=== PATIENT | male | born 1990 | race Caucasian/White ===

== ENCOUNTER 2017-11-29 01:24 | Emergency (ER) | payer MEDICAID ==
[2017-11-29 01:25] VITALS: BMI 26.6
[2017-11-29 01:58] VITALS: TEMP 97.7
[2017-11-29] MEDS ORDERED: Sodium Chloride 0.9% 1,000 ML IV SCH (02:15)
--- NOTE | 2017-11-29 03:04 | ED PDOC ---
Arrival/HPI - General Chief Complaint: GI Problem Time Seen by Provider: 11/29/17 02:15 Historian: Patient - History of Present Illness Narrative History of Present Illness (Text): 11/29/17 02:56 27 year old male, with no significant past medical history, presents to the emergency department with right lower abdominal pain and constipation, for 24 hours. Patient states he has chronic constipation, and today had a hard time wi th morning bowel movement. Patient states he feels he was unable to fully empty his bowel. Patient states he has felt pain in RLQ shortly after. Patient denies any fevers, chills, headache, dizziness, or any other complaint. Time/Duration: 24 hours Symptom Onset: Gradual Symptom Course: Unchanged Activities at Onset: Light Past Medical History - Provider Review Nursing Documentation Reviewed: Yes - Infectious Disease Hx of Infectious Diseases: None - Tetanus Immunization Tetanus Immunization: Up to Date - Cardiac Hx Cardiac Disorders: No - Pulmonary Hx Respiratory Disorders: No - Neurological Hx Neurological Disorder: No - HEENT Hx HEENT Disorder: Yes Other/Comment: EAR PAIN - Renal Hx Renal Disorder: No - Endocrine/Metabolic Hx Endocrine Disorders: No - Hematological/Oncological Hx Blood Disorders: No - Integumentary Hx Sullivan: Yes - Musculoskeletal/Rheumatological Hx Musculoskeletal Disorders: No - Gastrointestinal Hx Gastrointestinal Disorders: Yes Hx Constipation: Yes - Genitourinary/Gynecological Hx Genitourinary Disorders: No - Psychiatric Hx Anxiety: Yes Hx Depression: Yes Hx Substance Use: No - Anesthesia Hx Anesthesia: No Hx Anesthesia Reactions: No Hx Malignant Hyperthermia: No - Suicidal Assessment Feels Threatened In Home Enviroment: No Family/Social History - Physician Review Nursing Documentation Reviewed: Yes Family/Social History: No Known Family HX Smoking Status: Light Smoker < 10 Cigarettes Daily Hx Alcohol Use: No Hx Substance Use: No Allergies/Home Meds Allergies/Adverse Reactions: Allergies No Known Allergies Allergy (Verified 05/06/15 10:48) Home Medications: Home Meds Medication Instructions Recorded Confirmed Sertraline [Zoloft] 100 mg PO DAILY 05/06/15 05/06/15 Review of Systems - Physician Review All systems were reviewed & negative as marked: Yes - Review of Systems Constitutional: absent: Fevers, Night Sweats Gastrointestinal: Abdominal Pain, Constipation Neurological: absent: Headache, Dizziness Physical Exam - Physical Exam Narrative Physical Exam (Text): 11/29/17 03:07 Gen: VS reviewed, alert, well developed, well nourished, nontoxic, mild distress. ENT: normal pharynx. Eye: EOMI, PERRL. Neck: no JVD, supple, no adenopathy. CV: regular rate, regular rhythm, no rubs, no murmur, no gallops, S1, S2, pulses equal and strong. Pulm: no distress, clear to auscultation, no wheeze, no rhonchi, breath sounds equal, no rales. Abd: mild to moderate RLQ tenderness, some guarding, no rebound, no rigidity. Ext: no edema. Skin: good color, no rash, no cyanosis. Psych: responds appropriately to questions, normal affect. Neuro: oriented x 3, CN2-12 intact grossly, motor intact, sensation intact. Vital Signs Reviewed: Yes Vital Signs Temp Pulse Resp BP Pulse Ox 11/29/17 01:55 97.7 F 110 H 20 130/78 97 Temperature: Afebrile Blood Pressure: Normal Pulse: Tachycardic Respiratory Rate: Normal Appearance: Positive for: Well-Appearing, Non-Toxic, Comfortable Pain Distress: None Mental Status: Positive for: Alert and Oriented X 3 Medical Decision Making ED Course and Treatment: 11/29/17 03:08 Impression: 27 year old male presents with RLQ pain and constipation Plan: -- CT ABD & Pelvis -- Toradol -- Urinalysis -- Reassess and disposition Prior Visits: Notes and results from previous visits were reviewed. Progress Notes: 11/29/17 05:19 patient initially reported he had constipation but there is no CT evidence of this. patient states that he had a lot of rectal pain but he is refusing rectal exam. patient denies any bloody stools. patient states he took magnesium prior to coming to the ED to "flush out his system". at this point patient will be discharged home and encouraged to follow up with his doctors. 11/29/17 05:23 - RAD Interpretation Narrative RAD Interpretations (Text): EXAM: CT Abdomen and Pelvis with IV contrast CLINICAL HISTORY: RLQ pain TECHNIQUE: Axial computed tomography images of the abdomen and pelvis with intravenous contrast. 573.27 mGy-cm CONTRAST: With intravenous contrast. With; OMNI 350 100 ml COMPARISON: None provided. FINDINGS: LUNG BASES: The lung bases appear clear. No pleural effusions are seen. LIVER: Unremarkable. GALLBLADDER AND BILE DUCTS: The gallbladder appears within normal limits. No radioopaque gallstones are seen. No biliary ductal dilatation is evident. PANCREAS: Unremarkable. SPLEEN: Unremarkable. ADRENAL GLANDS: Unremarkable. KIDNEYS, URETERS, AND BLADDER: The kidneys appear within normal limits. There is no hydronephrosis or hydroureter. No urinary calculi are seen. STOMACH AND BOWEL: Thick walled fluid filled small bowel compatible with enteritis. All segments are involved. Infectious and inflammatory etiologies are considered. Fluid-filled colon especially ascending colon, nonspecific, although may represent mild colitis. APPENDIX: No evidence of acute appendicitis on CT examination. PERITONEUM: No free fluid. No free air. LYMPH NODES: No lymphadenopathy is evident. REPRODUCTIVE: Unremarkable as visualized. VASCULATURE: No evidence of abdominal aortic aneurysm. BONES: No aggressive appearing osseous lesion. No acute osseous pathology evident. IMPRESSION: Normal appendix. Fluid-filled colon especially ascending colon, nonspecific, although may represent mild colitis. Thick walled fluid filled small bowel compatible with enteritis. All segments are involved. Infectious and inflammatory etiologies are considered. Electronically signed on Nov 29, 2017 4:58:41 AM EDT by: Chidi Ng M.D., KATEY Certified By ABR & CBC[employer] Fellowship Trained MRI and CT Specialist Radiology Orders: 11/29/17 02:16 ABDOMEN & PELVIS [ABD & PELVIS IV CONTRAST ONLY] [CT] Stat - Medication Orders Current Medication Orders: Sodium Chloride (Sodium Chloride 0.9%) 1,000 mls @ 150 mls/hr IV .[id number] [facility] Last Admin: 11/29/17 02:51 Dose: 150 mls/hr eMAR Start Stop Document 11/29/17 02:51 AD (Rec: 11/29/17 02:52 AD [id number]) Intravenous Solution Start Date 11/29/17 Start Time 02:52 Discontinued Medications Ketorolac Tromethamine (Toradol) 30 mg IVP STAT STA Stop: 11/29/17 02:16 Last Admin: 11/29/17 02:52 Dose: 30 mg MAR Pain Assessment Document 11/29/17 02:52 AD (Rec: 11/29/17 02:52 AD [id number]) Pain Reassessment Is this a pain reassessment? No Description Intensity of Pain at present 10 Pain Behavior Facial Grimacing IVP Administration Document 11/29/17 02:52 AD (Rec: 11/29/17 02:52 AD [id number]) Charges for Administration # of IVP Administrations 1 - Scribe Statement The provider has reviewed the documentation as recorded by the Marisolibaluren Mcghee Provider Scribe Attestation: All medical record entries made by the Scribe were at my direction and personally dictated by me. I have reviewed the chart and agree that the record accurately reflects my personal performance of the history, physical exam, medical decision making, and the department course for this patient. I have also personally directed, reviewed, and agree with the discharge instructions and disposition. Disposition/Present on Arrival - Present on Arrival Any Indicators Present on Arrival: No History of DVT/PE: No History of Uncontrolled Diabetes: No Urinary Catheter: No History of Decub. Ulcer: No History Surgical Site Infection Following: None - Disposition Have Diagnosis and Disposition been Completed?: Yes Diagnosis: Abdominal pain Disposition: HOME/ ROUTINE Disposition Time: 05:24 Patient Plan: Discharge Patient Problems: Current Active Problems Problem Status Onset Abdominal pain Acute Condition: STABLE Discharge Instructions (ExitCare): Acute Abdomen (Belly Pain) Additional Instructions: Return for any new or worsening symptoms. ROBIN HULL, thank you for letting us take care of you today. Your provider was Dr. Akira Mueller and you were treated for abdominal pain. The emergency medical care you received today was directed at your acute symptoms. If you were prescribed any medication, please fill it and take as directed. It may take several days for your symptoms to resolve. Return to the Emergency Department if your symptoms worsen, do not improve, or if you have any other problems. Please contact your doctor or call one of the physicians/clinics you have been referred to that are listed on the Patient Visit Information form that is included in your discharge packet. Bring any paperwork you were given at discharge with you along with any medications you are taking to your follow up visit. Our treatment cannot replace ongoing medical care by a primary care provider outside of the emergency department. Thank you for allowing the [facility] team to be part of your care today. If you had an X-Ray or CT scan: A Radiologist will review the ED reading if any change in treatment is needed we will contact you. If you had a blood, urine, or wound culture: It will take several days for the results, if any change in treatment is needed we will contact you. If you had an STI test: It will take 48 hours for the results. Please call after 1 week if you have not heard back. Prescriptions: Dicyclomine [Dicyclomine HCl] 10 mg PO TID PRN #15 cap PRN Reason: abdominal cramping Referrals: [facility] [Outside] - Follow up with primary Anushka Acosta MD [Medical Doctor] - Follow up with primary Forms: [employer] (Greenlandic)
[2017-11-29 03:09] LABS: BASO # 0.01 K/mm3 (0.0-2.0); BASO % 0.1 % (0.0-3.0); EOS # 0.1 (0.0-0.7); EOS % 1.3 % (1.5-5.0); GRAN # 4.51 (1.4-6.5); LYMPH # 1.8 (1.2-3.4); LYMPH % 26.7 % (22.0-35.0); MEAN CORPUSCULAR HEMOGLOBIN 30.3 pg (25.0-35.0); MEAN CORPUSCULAR HGB CONC 36.1 g/dl (31.0-37.0); MONO # 0.3 (0.1-0.6); MONO % 4.9 % (1.0-6.0); RBC 4.95 10^6/uL (3.5-6.1); RED CELL DISTRIBUTION WIDTH 12.7 % (11.5-14.5); WHITE BLOOD COUNT 6.7 10^3/ul (4.5-11.0)
[2017-11-29 03:28] LABS: ALB/GLOB RATIO 1.4 (1.1-1.8); ALBUMIN 4.7 g/dL (3.0-4.8); ALT/SGPT 79 U/L (7-56); AST/SGOT 42 U/L (17-59); BLOOD UREA NITROGEN 20 mg/dL (7-21); CALCIUM 9.6 mg/dL (8.4-10.5); GFR NON-AFRICAN AMERICAN > 60; LIPASE 77 U/L (23-300)
[2017-11-29] MEDS ORDERED: Iohexol 350 MG/100 ML VIAL ONE (03:33)
[2017-11-29 04:27] LABS: URINE BILIRUBIN NEGATIVE (NEGATIVE); URINE BLOOD NEGATIVE (NEGATIVE); URINE GLUCOSE (UA) NEGATIVE (NEGATIVE); URINE LEUKOCYTE ESTERASE NEGATIVE Leu/uL (NEGATIVE); URINE PROTEIN TRACE mg/dL (<30 mg/dL); URINE UROBILINOGEN 0.2 E.U./dL (<1 E.U./dL)
[2017-11-29 04:33] LABS: URINE APPEARANCE CLEAR (CLEAR); URINE COLOR YELLOW (YELLOW)
[2017-11-29 04:41] LABS: URINE EPITHELIAL CELLS 0 - 2 /hpf (0-5); URINE RBC 0 - 2 /hpf (0-2); URINE WBC 0 - 2 /hpf (0-6)
[2017-11-29 07:02] VITALS: BP 127/89; PULSE 95; RESP 18; O2SAT 100
--- NOTE | 2017-11-29 11:15 | CT ---
Date of service: 11/29/2017 PROCEDURE: CT Abdomen and Pelvis with contrast HISTORY: RLQ pain COMPARISON: None. TECHNIQUE: Contrast dose: 100 cc of Omni 350 Radiation dose: Total exam DLP = 573.27 mGy-cm. This CT exam was performed using one or more of the following dose reduction techniques: Automated exposure control, adjustment of the mA and/or kV according to patient size, and/or use of iterative reconstruction technique. FINDINGS: LOWER THORAX: Unremarkable. LIVER: Unremarkable. No gross lesion or ductal dilatation. GALLBLADDER AND BILE DUCTS: Unremarkable. PANCREAS: Unremarkable. No gross lesion or ductal dilatation. SPLEEN: Unremarkable. ADRENALS: Unremarkable. No mass. KIDNEYS AND URETERS: Unremarkable. No hydronephrosis. No solid mass. VASCULATURE: Unremarkable. No aortic aneurysm. BOWEL: Unremarkable. No obstruction. No gross mural thickening. APPENDIX: Normal appendix. PERITONEUM: Unremarkable. No free fluid. No free air. LYMPH NODES: Unremarkable. No enlarged lymph nodes. BLADDER: Unremarkable. REPRODUCTIVE: Unremarkable. BONES: No acute fracture. OTHER FINDINGS: None. IMPRESSION: No acute intra-abdominal findings. No evidence of appendicitis
== END 2017-11-29 05:35 | disposition home or self-care (01) ==
LOC: ED 01:24
DX: R10.9 Unspecified abdominal pain (principal)
CPT/HCPCS: 74177; 80053; 81001; 83690; 85025; 96374; 99283; J1885; J7030; Q9967